=== PATIENT | male | born 1950 | race Caucasian/White ===

== ENCOUNTER 2016-11-16 21:38 | Emergency (ER) | payer OTHER ==
[~2016-11-16] VITALS: Ht 172.7 cm; Wt 90.9 kg
[~2016-11-16 21:38] MED LIST: AMBIEN10 MG PO; ATENOLOL50 MG PO; CELEBREX 200MG200 MG PO; CYMBALTA 60MG60 MG PO; DOXYCYCLINE 10100 MG PO; FLEXERIL 1010 MG/TAB PO; LORTAB 5/500 501 TAB PO; LUNESTA2 MG PO; MOTRIN 800800 MG/TAB PO; NORCO 325 MG-51 TAB PO; PERCOCET 325 MG1 TA2 PO; PYRIDIUM 100MG100 MG PO; SIMVASTATIN40 MG PO; SKELAXIN 800MG800 MG PO; ULTRAM 50MG TAB50 MG PO; ZOFRAN 4MG T4 MG/TAB PO
[2016-11-16 21:40] VITALS: BP 120/85; TEMP 98.3
[2016-11-16] MEDS ORDERED: TAZTIA120 PO (21:51)
[2016-11-16] MEDS ORDERED: PLAQUENIL 200M200 MG PO (21:52)
[2016-11-16] MEDS ORDERED: LIPITOR 40MG TA40 MG PO (21:53)
[2016-11-16] MEDS ORDERED: VOLTAREN GEL 1%1 TU TP (21:54)
[2016-11-16 23:01] VITALS: PULSE 73
== END 2016-11-16 23:01 | disposition home or self-care (01) ==
LOC: COL.ER 21:38
DX: S60.415A Abrasion of left ring finger, initial encounter (principal); I10 Essential (primary) hypertension; E78.5 Hyperlipidemia, unspecified; Z86.79 Personal history of other diseases of the circulatory system; Z98.890 Other specified postprocedural states; W55.81XA Bitten by other mammals, initial encounter

== ENCOUNTER 2019-09-12 08:31 | Emergency (ER) | payer MEDICARE ==
[~2019-09-12] VITALS: Ht 172.7 cm; Wt 75.0 kg
[~2019-09-12 08:31] MED LIST changes: +LIPITOR 40MG TA40 MG PO; +PLAQUENIL 200M200 MG PO; +TAZTIA120 PO; +VOLTAREN GEL 1%1 TU TP
[2019-09-12 08:48] VITALS: TEMP 97.6
[2019-09-12] MEDS ORDERED: SYNJARDY XR 121 EACH PO (09:44)
[2019-09-12] MEDS ORDERED: MEDROL 4MG DOSPA4 MG PO ×2 (09:53)
[2019-09-12] MEDS ORDERED: SKELAXIN 800MG800 MG PO ×2 (09:53)
[2019-09-12] MEDS ORDERED: LIDODERM 5% PATC1 EA TP ×2 (09:53)
[2019-09-12] MEDS ORDERED: PERCOCET 325 MG1 TA3 PO (09:53)
[2019-09-12 11:10] VITALS: BP 120/80; PULSE 85
== END 2019-09-12 10:51 | disposition home or self-care (01) ==
LOC: COL.ER 08:31
DX: M54.16 Radiculopathy, lumbar region (principal); E11.9 Type 2 diabetes mellitus without complications; I10 Essential (primary) hypertension; Z79.84 Long term (current) use of oral hypoglycemic drugs; Z79.899 Other long term (current) drug therapy
CPT/HCPCS: J1885; J3360

== ENCOUNTER → 2019-10-01 | Outpatient (CLI) | payer MEDICARE ==
[~2019-10-01] MED LIST changes: +LIDODERM 5% PATC1 EA TP; +MEDROL 4MG DOSPA4 MG PO; +PERCOCET 325 MG1 TA3 PO; +SYNJARDY XR 121 EACH PO
== END ==
LOC: ZCOL.LAB 10:39
DX: I25.10 Atherosclerotic heart disease of native coronary artery without angina pectoris (principal)

== ENCOUNTER → 2019-10-09 | Outpatient (CLI) | payer MEDICARE | LOC: COL.RAD 06:50 | DX: M53.3 Sacrococcygeal disorders, not elsewhere classified (principal); M51.26 Other intervertebral disc displacement, lumbar region ==

== ENCOUNTER → 2022-07-02 | Outpatient (CLI) | payer MEDICARE, OTHER | LOC: MHCPAIN 10:23 | DX: M47.812 Spondylosis without myelopathy or radiculopathy, cervical region (principal); M54.12 Radiculopathy, cervical region; G89.29 Other chronic pain | CPT/HCPCS: G0463 ==

== ENCOUNTER → 2022-07-16 | Outpatient (CLI) | payer MEDICARE, OTHER | LOC: MHCPAIN 13:37 | DX: M47.812 Spondylosis without myelopathy or radiculopathy, cervical region (principal); M54.12 Radiculopathy, cervical region | CPT/HCPCS: J1100; Q9967 ==